=== PATIENT | female | born 1950 | race Caucasian/White ===

== ENCOUNTER → 2016-08-10 | Outpatient (CLI) | payer MEDICARE, OTHER ==
[~2016-08-10] MED LIST: DEXT30SU2 PO; FISH1CAP15 PO; FLUC50TA PO; INDA1.25 PO; LSNP20T PO; LVF500T GT; MENT113P TP; METH4TAB27 PO; METR500T PO; MGX400T GT; SIMV40TA PO; [UNRECOGNIZED DRUG - OTHER] PO
--- NOTE | 2016-08-10 08:54 | Diagnostic Imaging Report ---
INDICATION: Abdominal/pelvic bruit TECHNIQUE: Multiple real-time grayscale sonographic images, color and duplex Doppler images were obtained of the urinary system. FINDINGS: The aortic velocity is 75 cm/sec. The RIGHT kidney measures 9 x 4 x 6 cm. No hydronephrosis or nephrolithiasis is identified. No tardus parvus wave forms are identified. The maximum right renal artery velocity is 130cm/sec, renal artery/aortic ratio 1.7. The LEFT kidney measures 9 x 4.5 x 5 cm. No hydronephrosis or nephrolithiasis is identified. No tardus parvus wave forms are identified. The maximum left renal artery velocity is 86cm/sec, renal artery/aortic ratio 1.15. Renal veins patent. Velocities are slightly increased in bilateral iliac arteries at approximately 130 cm/s. IMPRESSION: 1. No significantly increased renal artery velocity suggest of the renal artery stenosis. 2. Slight symmetric increased velocity of the bilateral common iliac arteries but without velocity change to suggest significant stenosis. Dictated by: Dictated on workstation # [id number]
== END ==
LOC: RAD 07:17
PROVIDERS: ATTEND Family Medicine
DX: R09.89 Other specified symptoms and signs involving the circulatory and respiratory systems (principal)
CPT/HCPCS: 93976